=== PATIENT | male | born 1995 | race Caucasian/White ===

== ENCOUNTER 2022-10-23 15:19 | Emergency (ER) | payer BC, SELFPAY ==
--- NOTE | ~2022-10-23 | XR_ITS ---
EXAMINATION: XR SHOULDER, LEFT CLINICAL INFORMATION: Left shoulder pain. COMPARISON: None available. TECHNIQUE: AP external rotation, Grashey, scapular Y, and axillary views of the left shoulder. FINDINGS: The bones and soft tissues are normal. No fracture. Glenohumeral and acromioclavicular alignment is anatomic with normal joint space. No abnormal soft tissue calcifications. XR/XR shoulder LT min 2V IMPRESSION: Unremarkable left shoulder.
[2022-10-23 15:44] VITALS: BP 108/71; PULSE 75; RESP 16; TEMP 36.9; O2SAT 97; BMI 38.7
--- NOTE | 2022-10-23 15:45 | ED_ITS ---
HPI - Extremity Injury (Upper) General Chief Complaint: Extremity Injury, Upper Stated Complaint: L shoulder pain/Numbness on L hand Time Seen by Provider: 10/23/22 15:45 Source: patient, RN notes reviewed and old records reviewed Mode of arrival: ambulatory History of Present Illness HPI narrative: 26 year old male w/ a pmhx significant for left-sided labral tear s/p repair presents to the ED today w/ complaints of atraumatic L shoulder pain and intermittent pins and needles to LUE/hand x2 weeks. He denies any injury or trauma to the shoulder, however, endorses strenuous/heavy lifting at work. Denies fever/chills, weakness, neck/back pain Onset (ago): week(s) (2) Related Data Previous Rx's Medication Instructions Recorded acetaminophen 500 mg tablet 500 mg PO Q6H PRN fever or pain 10/23/22 (Tylenol Extra Strength) #14 tabs lidocaine 5 % topical patch 1 patch topical DAILY PRN pain #30 10/23/22 (Lidoderm) ea naproxen 500 mg tablet 500 mg PO BID PRN pain 10 days #20 10/23/22 tabs Allergies Allergy/AdvReac Type Severity Reaction Status Date / Time No Known Allergies Allergy Verified 10/23/22 15:48 Review of Systems Review of Systems: Constitutional: No Fever, No Chills, No Fatigue, No Malaise ENT/Mouth: No Nasal Congestion, No Hoarseness, No Rhinorrhea, Eyes: No Eye Pain, No Swelling Cardiovascular: No Chest Pain, No SOB Respiratory: No Cough, No Sputum, No Dyspnea Gastrointestinal: No Nausea, No Vomiting, No Diarrhea, No Constipation, No Abdominal pain, Skin: No Skin Lesions, No rash MSK: (+) joint pain Neuro: (+) Paresthesias of L arm/hand, No Weakness, No Headache Yes all other systems are reviewed and are negative Constitutional: Constitutional: Reports as per [facility] Past Medical History Attestation statement: The following information was validated with the patient. Source: old records reviewed Social History Social History Advance Directives: No Advance Directives Information Provided: No Physical Exam Vital Signs: Vital Signs: Last Vital Signs Temp 98.4 F 10/23/22 15:44 Pulse 75 10/23/22 15:44 Resp 16 10/23/22 15:44 BP 108/71 10/23/22 15:44 Pulse Ox 97 10/23/22 15:44 O2 Del Method Room Air 10/23/22 15:44 BMI result Body Mass Index 38.7 Const: General: cooperative, healthy appearing and no acute distress Orientation/consciousness: patient oriented x3 Limitations: no limitations HEENT: Head: Yes normal to inspection and Yes atraumatic Ears: hearing grossly normal bilaterally General nose exam: Normal external nose present Face and sinus: Yes normal facial exam Eyes: General: appearance normal, both eyes and all related structures EOM: EOMs intact bilaterally Neck: Neck: Yes normal visual inspection and Yes no meningeal signs Resp: Effort & Inspection: normal respiratory effort and no respiratory distress Cardio: Rate: regular rate Peripheral pulses: radial pulses present and ulnar radial pulses present Back/Spine/Pelvis: Back: No back tenderness Cervical Spine: No cervical muscular tenderness Thoracic/Lumbar Spine: thoracic and lumbar spine normal to inspection Skin: Rashes: no rashes Wounds: no wounds Neuro: General: patient oriented x3, tone normal, no meningeal signs and CN's II-XI intact bilaterally Gait exam (Neuro): Normal gait present Extrem: Other: Left shoulder without noted deformity/erythema or warmth. Full active and passive ROM to b/l UE intact. Mild tenderness to deep palpation of the left shoulder. (-) empty can test, pronator drift test, and drop arm test. NV intact distally. Left elbow, forearm hand and wrist nontender General: Yes normal to inspection and Yes full ROM Course Course Course Narrative: RME - 26 yo right hand dominant male with history of left shoulder surgery in the past presents to the ER for evaluation of left shoulder pain and intermittent numbness of the left hand for the last 2 weeks. 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 Plan: x-ray left shoulder XR shoulder LT min 2V IMPRESSION: Unremarkable left shoulder. > Results discussed with patient including worrisome signs and symptoms and strict return precautions, and when to return to the emergency department. They verbalized understanding and feel safe for discharge at this time. Medical Decision Making Medical Decision Making MDM Narrative: 26 year old male w/ a pmhx significant for left-sided labral tear s/p repair presents to the ED today w/ complaints of atraumatic L shoulder pain and intermittent pins and needles to LUE/hand x2 weeks. On exam VSS, NAD, no signs of trauma/injury, PE as above. Likely muscle strain vs tendinitis/ligamental or rotator cuff injury d/t heavy/strenuous lifting. Unlikely fracture or dislocati on, impingement, or frozen shoulder. Plan: X-ray, supportive care, ortho f/u Please refer to course for remaining clinical decision making, interpretation of labs/imaging results, and discussions with consultants and/or family members. Differential Diagnosis Differential Diagnoses: The differential diagnosis associated with the pres entation includes As above Admission/Observation Consideration of admission/observation: Escalation of care including admission /observation considered Radiology Impression Discussion of test interpretation with radiology: I have reviewed the radiologist's reading. External Record Review External record reviewed: Inpatient record, Office record, Outpatient record, Prior outpatient labs, Prior outpatient radiology, Primary care record and Outside ED record Tests considered The following testing was considered but not selected: As above Prescription Management I considered prescription management with: Pain Medication Discharge Plan Discharge Clinical Impression: Shoulder joint pain Patient Disposition: Home, Self-Care Instructions: Shoulder Pain (ED) Additional Instructions: Your x-rays unremarkable Naproxen as an anti-inflammatory/pain medication, take with food In addition use Lidoderm patches and Tylenol Follow-up with Orthopedics and your doctor If symptoms persist or worsen return to the ED Prescriptions: New acetaminophen [Tylenol Extra Strength] 500 mg tablet 500 mg PO Q6H PRN (Reason: fever or pain) Qty: 14 0RF lidocaine [Lidoderm] 5 % adhesive patch,medicated 1 patch topical DAILY MDD remove after 12 hours PRN (Reason: pain) Qty: 30 0RF Rx Instructions: leave on most painful area for up to 12 hrs naproxen 500 mg tablet 500 mg PO BID PRN (Reason: pain) 10 Days Qty: 20 0RF Referrals: [facility] [place] Orthopedic Surgeons [Provider Group] Stand Alone Forms: Work/School Release Interventions: ED Discharge Assessment Last Done: 10/23/22 17:47 Discharge Date/Time: 10/23/22 17:48
== END 2022-10-23 17:48 | disposition home or self-care (01) ==
PROVIDERS: Emergency Provider Emergency Medicine Emergency Medical Services
DX: M25.512 Pain in left shoulder (principal)
CPT/HCPCS: 73030; 99282; 99283

== ENCOUNTER 2024-10-14 13:35 | Emergency (ER) | payer MEDICAID, SELFPAY ==
[2024-10-14 13:52] VITALS: BP 148/80; PULSE 82; RESP 16; TEMP 36; O2SAT 98; BMI 37.9
--- NOTE | 2024-10-14 13:58 | ED_ITS ---
HPI - General Adult General Chief complaint: Dental/Oral Stated complaint: facial swelling Time Seen by Provider: 10/14/24 13:58 Source: patient, RN notes reviewed and old records reviewed Mode of arrival: ambulatory Limitations: no limitations History of Present Illness ED Provider: Josee BACA narrative: 28-year-old male presents for evaluation of left facial swelling. He reports he has a remote fracture to a tooth in the left upper molar region. He has had pain to the area for about 1 week He has already called to make an appointment with his dentist which is next , 8 days from now. However yesterday he developed facial swelling which is somewhat worse today. Denies any fevers or chills pain He denies any left ear pain Related Data Previous Rx's ?Medication ?Instructions ?Recorded acetaminophen 500 mg tablet 500 mg PO Q6H PRN fever or pain 10/23/22 (Tylenol Extra Strength) #14 tabs lidocaine 5 % topical patch 1 patch topical DAILY PRN pain #30 10/23/22 (Lidoderm) ea naproxen 500 mg tablet 500 mg PO BID PRN pain 10 da ys #20 10/23/22 tabs amoxicillin 875 mg-potassium 1 tab PO Q12H #14 tabs clavulanate 125 mg tablet Allergies Allergy/AdvReac Type Severity Reaction Status Date / Time No Known Allergies Allergy Verified 10/14/24 13:55 Review of Systems Constitutional: Constitutional: Denies body ache(s), Denies chills and Denies fever(s) Eyes: Eyes: Denies blurry vision ENT: Reports facial pain, Denies neck pain, Denies sore throat and Denies throat swelling Cardiovascular: Cardiovascular: Denies chest pain Gastrointestinal: Gastrointestinal: Denies abdominal pain, Denies nausea and Denies vomiting Musculoskeletal: Musculoskeletal: Denies back pain and Denies neck pain Allergic/Immunologic: Allergic/Immunologic: Denies throat swelling [facility] Social History Social History Advance Directives: No Advance Directives Information Provided: Yes Physical Exam ED Vital Signs: Vital Signs - 24 hr 10/14/24 13:52 10/14/24 14:26 Temperature 96.8 F 96.8 F Pulse Rate 82 82 Respiratory Rate 16 16 Blood Pressure 148/80 H 148/80 H Pulse Oximetry 98 98 Oxygen Delivery Method Room Air Room Air BMI result Body Mass Index 37.9 Const General: healthy appearing, comfortable, no acute distress, alert and awake Nutritional Appearance: well nourished Orientation/consciousness: patient oriented x3 HENMT Other: There was a small fractures to the a left upper molar. No dentin exposed. Minimal surrounding gingival edema, no obvious abscess. No retropharyngeal edema. There is mild left facial edema to the left cheek. No overlying erythema, minimal tenderness to palpation. No fluctuance Ears: TM's normal bilaterally and EAC's normal Eyes Eyelids: Yes eyelids normal Conjunctivae: conjunctivae normal Sclerae: sclerae normal Corneas: corneas normal Pupils: Equal, round and reactive pupils present EOM: EOMs intact bilaterally Neck Neck: Yes full ROM Resp Effort & Inspection: normal respiratory effort, able to speak in complete sentences and not labored Cardio Rate: regular rate Rhythm: regular rhythm Skin General skin exam: elasticity normal Neuro General: patient oriented x3 Cranial nerves: Yes Equal, round and reactive pupils present and Yes Bilaterally intact EOM present Cognition (Neuro): normal cognition Extrem Other: Moving all extremities well without any obvious deformities Medical Decision Making Medical Decision Making MDM Narrative: 28-year-old male presents for evaluation of left facial pain and dental pain. He has been appointment to see his dentist but developed swelling starting yesterday. It appears that he does have a dental infection in the area of a previous dental fracture. We will start the patient on Augmentin as there was no evidence of abscess requiring procedure. He will follow up with his dentist next week. No evidence of Edi's angina no evidence of otitis media or otitis externa Differential Diagnosis Differential Diagnoses: The differential diagnosis associated with the presentation includes Gingivitis Atypical facial pain Dental abscess Dental caries Discharge Plan Discharge Clinical Impression: Toothache, Acute facial pain Patient Disposition: Home, Self-Care Instructions: Acute Headache (ED), Toothache (ED) Additional Instructions: It does look like you have a developing dental infection. There was no obvious abscess. Take Augmentin twice daily for 1 week. Follow-up with your dentist as planned next week You may also use warm compresses. Use ibuprofen/Tylenol for pain Prescriptions: New amoxicillin-pot clavulanate 875-125 mg tablet 1 tab PO Q12H Qty: 14 0RF No Action acetaminophen [Tylenol Extra Strength] 500 mg tablet 500 mg PO Q6H PRN (Reason: fever or pain) Qty: 14 0RF lidocaine [Lidoderm] 5 % adhesive patch,medicated 1 patch topical DAILY MDD remove after 12 hours PRN (Reason: pain) Qty: 30 0RF Rx Instructions: leave on most painful area for up to 12 hrs naproxen 500 mg tablet 500 mg PO BID PRN (Reason: pain) 10 Days Qty: 20 0RF Interventions: ED Discharge Assessment Last Done: 10/14/24 14:26 Discharge Date/Time: 10/14/24 14:28 Print Language: Tongan
[2024-10-14 14:26] VITALS: BP 148/80; PULSE 82; RESP 16; TEMP 36; O2SAT 98
--- OUTSIDE RECORDS SUMMARY | 2024-10-14 14:42 | XMS_ITS ---
Author Name [facility] Organization Unknown History of Medication Use Medication Directions Dispensed Refills Start Date End Date [facility] escitalopram 10 mg tablet Take 1 tablet (10 mg total) by mouth daily. 12/02/2020 2 completed cetirizine 10 mg tablet Take 10 mg by mouth daily as needed for allergies. 4 completed doxycycline monohydrate 100 mg tablet TAKE 1 TABLET BY MOUTH TWICE A DAY FOR 7 DAYS 4 completed naproxen 500 mg tablet 4 completed cholecalciferol (vitamin D3) 125 mcg (5,000 unit) tablet Take by mouth 2 (two) times a week. 3 completed Immunizations Vaccine Date Source Lot Number Status Influenza, injectable, Madin Zoe Canine Kidney, preservative free, quadrivalent 06/25/2023 [facility] [id number] completed SARS-COV-2 (COVID-19) vaccin e, mRNA, spike protein, LNP, preservative free, 30 mcg/0.3mL dose 03/25/2021 [facility] [id number] completed tetanus and diphtheria toxoi ds, adsorbed, preservative free, for adult use 08/26/2020 [facility] [id number] completed SARS-COV-2 (COVID-19) vaccin e, mRNA, spike protein, LNP, preservative free, 30 mcg/0.3mL dose 07/18/2020 [facility] [id number] completed SARS-COV-2 (COVID-19) vaccin e, mRNA, spike protein, LNP, preservative free, 30 mcg/0.3mL dose 06/26/2020 [facility] [id number] completed Human Papillomavirus 9-valent vaccine 02/24/2016 [facility] [id number] completed Human Papillomavirus 9-valent vaccine 11/09/2015 [facility] [id number] completed meningococcal oligosaccharid e (groups A, C, Y and W-135) diphtheria toxoid conjugate vaccine (MCV4O) 11/09/2015 [facility] [id number] completed human papilloma virus vaccine, quadrivalent 10/08/2012 [facility] completed human papilloma virus vaccine, quadrivalent 04/07/2012 [facility] completed meningococcal oligosaccharid e (groups A, C, Y and W-135) diphtheria toxoid conjugate vaccine (MCV4O) 04/07/2012 [facility] completed influenza, seasonal, injecta ble, preservative free 12/19/2010 [facility] completed hepatitis A vaccine, pediatr ic/adolescent dosage, 2 dose schedule 10/04/2010 [facility] complete d tetanus toxoid, reduced diph theria toxoid, and acellular pertussis vaccine, adsorbed 05/07/2010 [facility] completed hepatitis A vaccine, pediatr ic/adolescent dosage, 2 dose schedule 04/06/2010 [facility] complete d varicella virus vaccine 04/06/2010 [facility] c ompleted influenza, seasonal, injecta ble, preservative free 01/08/2004 [facility] completed influenza, seasonal, injecta ble, preservative free 02/15/2003 [facility] completed diphtheria, tetanus toxoids and acellular pertussis vaccine 07/29/2002 [facility] completed poliovirus vaccine, inactivated 07/29/2002 [facility] completed varicella virus vaccine 07/29/2002 [facility] c ompleted measles, mumps and rubella virus vaccine 01/06/2002 [facility] completed diphtheria, tetanus toxoids and acellular pertussis vaccine 09/05/1999 [facility] completed haemophilus influenzae type b vaccine, PRP-T conjugate 09/05/1999 [facility] completed poliovirus vaccine, inactivated 09/05/1999 [facility] completed measles, mumps and rubella virus vaccine 12/26/1998 [facility] completed diphtheria, tetanus toxoids and acellular pertussis vaccine 06/24/1998 [facility] completed haemophilus influenzae type b vaccine, PRP-T conjugate 06/24/1998 [facility] completed hepatitis B vaccine, pediatr ic or pediatric/adolescent dosage 06/24/1998 [facility] comp leted diphtheria, tetanus toxoids and acellular pertussis vaccine 04/21/1998 [facility] completed haemophilus influenzae type b vaccine, PRP-T conjugate 04/21/1998 [facility] completed poliovirus vaccine, inactivated 04/21/1998 [facility] completed diphtheria, tetanus toxoids and acellular pertussis vaccine 02/23/1998 [facility] completed haemophilus influenzae type b vaccine, PRP-T conjugate 02/23/1998 [facility] completed poliovirus vaccine, inactivated 02/23/1998 [facility] completed hepatitis B vaccine, pediatr ic or pediatric/adolescent dosage 01/24/1998 [facility] hepatitis B vaccine, pediatr ic or pediatric/adolescent dosage 1997 [facility] comp leted Encounters Encounter Type Encounter Reason Primary Diagnosis Location Date Ambulatory [facility] 09/17/2023 Ambulatory [facility] 09/16/2023 Ambulatory [facility] 09/13/2023 [facility] 08/13/2023 Ambulatory Contact with and (suspected) exposure to covid-19 [employer] 03/22/2021 Care Team Organization Name Specialty Phone Email Start Date End [facility] 07/29/2024 [facility] 01/14/2024 [facility] 01/11/2024 [facility] 10/23/2023 01/27/20 24 [facility] 06/11/2023 [facility] 05/27/2023 [facility] 08/07/[address] [facility] 01/23/2022 [facility] 03/23/2021 [facility] 03/22/202107/2021
--- OUTSIDE RECORDS SUMMARY | 2024-10-14 14:42 | XMS_ITS | Clinical Summary ---
Author Organization [facility] Address [address] [place] [address] Care Team Providers Care [employer] Name Role Phone Genesis Gomez MD Primary Care Provider + Allergies No known active allergies Medications Medication Sig Dispensed Refills Start Date End Date Status cetirizine (ZYRTEC) 10 MG tablet Take 10 mg by mouth daily as needed for allergies. 0 Active ibuprofen (ADVIL,MOTRIN) 200 MG tablet Take 200 mg by mouth every 6 (six) hours as needed for pain. 0 Active Cholecalciferol (VITAMIN D3) 5000 UNITS TABS Take by mouth 2 (two) times a week. 0 Active Active Problems Problem Noted Date Diagnosed Date Depression with anxiety 11/09/2020 PTSD (post-traumatic stress disorder) 05/14/2018 Well adult health check 11/09/2015 ADHD (attention deficit hype ractivity disorder), combined type 09/23/2015 Immunizations Name Administration Dates Next Due Covid-19 (Pfizer) Dilution Required 03/25/2021,0 07/18/2020,06/26/2020 DTaP 07/29/2002, 0,06/24/1998,04/21,02/23/1998 HIB (PRP-T) ActHIB / Hiberix - 4 dose series 09/05/1999,06/24/1998,04/21/1998,02/23 HPV 9 Valent 02/24/2016,11/09/2015 HPV Quadrivalent 10/08/2012,04/07/2012 Hepatitis A (Pediatric) 10/04/2010,04/06/2010 Hepatitis B (Pediatric / Ado lescent) (inactive) 06/24/1998,01/24/1998,1997 IPV 07/29/2002, 0,04/21/1998,02/23 Influenza TIV (IM) (inactive) 12/19/2010, 004,02/15/2003 MMR 01/06/2002,12/26/1998 Meningococcal Conjugate (Menveo) 11/09/2015,03/19 Td (Tenivac) 08/26/2020 Tdap 05/07/2010 Varicella 04/06/2010,07/29/2002 Family History Medical History Relation Name Comments Hyperlipidemia Father Diabetes Maternal Grandfather Diabetes Maternal Grandmother Asthma Mother Other Mother delayed gastric emptying Diabetes Paternal Aunt type one COPD Paternal Grandfather Stroke Paternal Grandmother Celiac disease Sister Relation Name Status Comments Father Alive Maternal Grandfather Alive Maternal Grandmother Alive Mother Alive Paternal Aunt Paternal Grandfather Paternal Grandmother Alive Sister Alive Social History Tobacco Use Types Packs/Day Years Used Date Smoking Tobacco: Former Cigarettes 0.3 4 Q uit: 03/18/2018 Smokeless Tobacco: Never Alcohol Use Standard Drinks/Week Comments Yes 0 (1 standard drink = 0.6 oz pur e alcohol) one per month Sex and Gender Information Value Date Recorded Sex Assigned at Male 04/16/2018 4:02 PM EST Gender Identity Male 04/16/2018 4:02 PM EST Sexual Orientation Straight 04/16/2018 4: 02 PM EST Job Start Date Occupation Industry Not on file Not on file Not on file Last Filed Vital Signs Vital Sign Reading Time Taken Comments Blood Pressure 110/70 08/26/2020 11:16 AM EDT Pulse 72 08/26/2020 11:16 AM EDT Temperature 36.4 C (97.5 F) 08/26/2020 11:16 AM EDT Respiratory Rate 16 08/26/2020 11:1 6 AM EDT Oxygen Saturation 99% 01/22/2018 2:42 PM EST Inhaled Oxygen Concentration - - Weight 116.3 kg (256 lb 6.4 oz) 021 11:16 AM EDT Height 171.5 cm (5' 7.5 ) 08/26/2020 11 :16 AM EDT Body Mass Index 39.57 08/26/2020 11:16 AM EDT Plan of Treatment Health Maintenance Due Date Last Done Comments BMI Counseling 08/26/2021 08/26/2020 Depression Screening 08/26/2021 08/26/2020, 04/16/2018, 04/05/2017, Additional history exists Preventative Health Evaluation 08/26/2021 08/26/2020, 08/14/2018, 04/05/2017 COVID-19 Vaccine ( season) 2023 03/25/2021, 07/18/2020, 06/26/2020 DTap / Tdap / Td (8 - Td or Tdap) 08/26/2030 08/26/2020, 05/07/2010, 07/29/2002, Additional history exists Hepatitis B Vaccines Completed 06/24/1998, 01/24/1998, 1997 Influenza Vaccine Discontinued 12/19/2010, , 02/15/2003 Hepatitis C Screening Completed 08/26/2020, 019 Pneumococcal Vaccine Aged Out No long er eligible based on patient's age to complete this topic RSV Ped < 20 months Aged Out No longe r eligible based on patient's age to complete this topic Care Teams [employer] Relationship Specialty Start Date End Date Genesis Gomez MD PCP - General Internal Medicine 09/23/15
== END 2024-10-14 14:28 | disposition home or self-care (01) ==
PROVIDERS: Emergency Provider Emergency Medicine
DX: R51.9 Headache, unspecified (principal); K08.89 Other specified disorders of teeth and supporting structures
CPT/HCPCS: 99282; 99283